=== PATIENT | male | born 1995 | race Caucasian/White ===

== ENCOUNTER → 2017-06-18 | Outpatient (CLI) | payer BC, OTHER ==
--- NOTE | 2017-06-18 08:01 | DIAGNOSTIC IMAGING REPORT ---
SINUS CT CT DOSE: 285.25 mGycm HISTORY: CHRONIC SINUSITIS TECHNIQUE: Multiaxial CT images of the paranasal sinuses were performed and reformatted in the coronal plane without the use of contrast. A dose lowering technique was utilized adhering to the principles of ALARA. COMPARISON: None. FINDINGS: Complete opacification of the frontal sinuses with near complete opacification of the bilateral ethmoid air cells and bilateral maxillary sinuses. Small hyperdense material within the opacified paranasal sinuses suggestive of inspissated secretions. Fungal infection could also have a similar appearance but is considered less likely given the lack of bony erosion identified. The sphenoid sinuses demonstrate mild mucosal thickening. The mastoid air cells are clear. Mild right nasal septal deviation. The bilateral ostiomeatal units are widened and completely opacified. The lamina papyracea and orbital floors are intact. The orbits and visualized brain parenchyma are unremarkable. IMPRESSION: 1. Near complete opacification of the paranasal sinuses as described above. Small amount of hyperdense material within the opacified sinuses is suggestive of inspissated secretions. 2. Opacified bilateral ostiomeatal units. 3. Mild right nasal septal deviation. Electronically signed by: Darrick Yusuf M.D. 06/18/2017 8:00 AM Dictated Date/Time: 06/18/2017 7:54 AM
== END | disposition home or self-care (01) ==
LOC: C.CTS 07:26
PROVIDERS: ATTEND Otolaryngology
DX: J32.9 Chronic sinusitis, unspecified (principal)